=== PATIENT | female | born 1990 | race Caucasian/White ===

== ENCOUNTER 2017-12-14 17:13 | Emergency (ER) | payer OTHER ==
[2017-12-14 17:20] VITALS: BP 96/62
[2017-12-14] MEDS ORDERED: CEPHALEXIN 500 MG CAP PO ONE (17:35)
--- NOTE | 2017-12-14 17:40 | EDPHY ---
H & P Stated Complaint: hematuria/r abd/r flank pain Time Seen by Provider: 12/14/17 17:26 HPI/ROS: CHIEF COMPLAINT: Dysuria, right flank pain HISTORY OF PRESENT ILLNESS: The patient is a 27-year-old healthy female comes to the emergency department complaining of dysuria, frequency, right flank pain over the last 2 days. She states that is been gradually getting worse. No nausea vomiting or GI symptoms. She finished her menses last week. She denies risk of . She presented to an urgent care who obtained a urinalysis that was positive. They told her that it was very positive and for some reason were concerned about her IUD causing the infection. The patient has not had any vaginal bleeding or discharge. No vaginal symptoms at all. No fever. She is a runner and her baseline blood pressure is low. She has a history of appendectomy. Severity: Moderate Modifying factors: None REVIEW OF SYSTEMS: Constitutional: denies: chills, fever, recent illness, recent injury EENTM: denies: blurred vision, double vision, nose congestion Respiratory: denies: cough, shortness of breath Cardiac: denies: chest pain, irregular heart rate, lightheadedness, palpitations Gastrointestinal/Abdominal: denies: abdominal pain, diarrhea, nausea, vomiting, blood streaked stools Genitourinary: See HPI Musculoskeletal: denies: joint pain, muscle pain Skin: denies: lesions, rash, jaundice, bruising Neurological: denies: headache, numbness, paresthesia, tingling, dizziness, weakness Hematologic/Lymphatic: denies: blood clots, easy bleeding, easy bruising Immunologic/allergic: denies: HIV/AIDS, transplant 10 systems reviewed and negative except as noted EXAM: GENERAL: Well-appearing, well-nourished and in no acute distress. HEAD: Atraumatic, normocephalic. EYES: Pupils equal round and reactive to light, extraocular movements intact, sclera anicteric, conjunctiva are normal. ENT: TMs normal, nares patent, oropharynx clear without exudates. Moist mucous membranes. NECK: Normal range of motion, supple without lymphadenopathy or JVD. LUNGS: Breath sounds clear to auscultation bilaterally and equal. No wheezes rales or rhonchi. HEART: Regular rate and rhythm without murmurs, rubs or gallops. ABDOMEN: Soft, nontender, normoactive bowel sounds. No guarding, no rebound. No masses appreciated. BACK: No CVA tenderness, no spinal tenderness, step-offs or deformities EXTREMITIES: Normal range of motion, no pitting or edema. No clubbing or cyanosis. NEUROLOGICAL: Cranial nerves II through XII grossly intact. Normal speech, normal gait. 5/5 strength, normal movement in all extremities, normal sensation , normal reflexes PSYCH: Normal mood, normal affect. SKIN: Warm, dry, normal turgor, no visible rashes or lesions. Source: Patient Exam Limitations: No limitations - Personal History LMP (Females 10-55): 1-7 Days Ago Current Tetanus Diphtheria and Acellular Pertussis (TDAP): Yes - Medical/Surgical History Hx Asthma: No Hx Chronic Respiratory Disease: No Hx Diabetes: No Hx Cardiac Disease: No Hx Renal Disease: No Hx Cirrhosis: No Hx Alcoholism: No Hx HIV/AIDS: No Hx Splenectomy or Spleen Trauma: No Other PMH: appy - Family History Significant Family History: No pertinent family hx - Social History Smoking Status: Never smoked Alcohol Use: None Constitutional: Initial Vital Signs Temperature (C) 36.2 C 12/14/17 17:18 Heart Rate 61 12/14/17 17:18 Respiratory Rate 18 12/14/17 17:18 Blood Pressure 96/62 L 12/14/17 17:18 O2 Sat (%) 98 12/14/17 17:18 O2 Delivery Mode Room Air Allergies/Adverse Reactions: No Known Allergies Allergy (Unverified 12/14/17 17:17) Home Medications: Medication Instructions Recorded Cephalexin [Keflex] 500 mg PO TID #21 cap 12/14/17 Medical Decision Making ED Course/Re-evaluation: The patient has pyelonephritis based on history and exam. Her abdominal exam is benign. She has dysuria and frequency increasing over the last few days. She has a positive urinalysis. She has not had any vaginal symptoms. I am not clear why the urgent care was concerned for PID or complications of IUD. Patient declines pelvic examination. I offered to do blood work to rule sepsis although I think it is unlikely based on her vital signs. Patient states that she would like to minimize cost and does not want to do lab work. We discussed antibiotic options. She does not want to take Levaquin because she is an avid runner. I will start her on Keflex initially and sent her urine for cultures. Also dip her urine for although she denies the possibility and went through her menses 1 week ago. We discussed indications for returning to the emergency department cleaning fever, worsening pain, vomiting etc. Differential Diagnosis: Partial list of the Differential diagnosis considered include but were not limited to; urinary tract infection, pyelonephritis, kidney stone and although unlikely based on the history and physical exam, I also considered PID, obstruction, ectopic , ovarian cyst, ovarian torsion. I discussed these differential diagnoses and the plan with the patient as well as the usual and expected course. The patient understands that the diagnosis is provisional and that in medicine we are not always correct and that further workup is often warranted. Usual and customary warnings were given. All of the patient's questions were answered. The patient was instructed to return to the emergency department should the symptoms at all worsen or return, otherwise to followup with the physician as we discussed. - Data Points Medications Given: Discontinued Medications Hydrocodone Bitart/Acetaminophen ([place] 5/325mg Prepack#6) 1 btl TAKEHOME EDNOW ONE Stop: 12/14/17 17:56 Last Admin: 12/14/17 17:56 Dose: 1 btl Cephalexin HCl (Keflex) 500 mg PO EDNOW ONE PRN Reason: Protocol Stop: 12/14/17 17:36 Last Admin: 12/14/17 17:57 Dose: 500 mg Levofloxacin (Levaquin) 750 mg PO EDNOW ONE PRN Reason: Protocol Stop: 12/14/17 17:33 Last Admin: 12/14/17 17:58 Dose: Not Given Point of Care Test Results: Urine Collection Date 12/14/17 Collection Time 17:45 HCG Results Negative Urine Dip Collection Date 12/14/17 Collection Time 17:40 Specific [place] (1.002-1.030) 1.010 PH (5.0-7.5) 7.0 Leukocytes (Negative) 3+ Nitrites (Negative) Negative Protein (Negative) 2+ Glucose (Negative) Negative Ketones (Negative) Trace Urobilnogen (0.2-1.0 EU) 0.2 Bilirubin (Negative) Negative Blood (Negative) 3+ Departure - Departure Disposition: Home, Routine, Self-Care Clinical Impression: Acute pyelonephritis Condition: Fair Instructions: Urinary Tract Infection in Women (ED) Referrals: NONE *PRIMARY CARE P,. [Primary Care Provider] - As per Instructions Geraldine Shaver MD [Medical Doctor] - 2-3 days, call for appt. Prescriptions: Cephalexin [Keflex] 500 mg PO TID #21 cap
[2017-12-14] MEDS ORDERED: HYDROCOD/APAP 5/325 PREPACK#6 BTL TAKEHOME ONE ×2 (17:52→17:55)
== END 2017-12-14 18:11 | disposition home or self-care (01) ==
DX: N30.00 Acute cystitis without hematuria (principal)